=== PATIENT | female | born 1990 | race African-American/Black ===

== ENCOUNTER 2020-05-11 11:10 | Emergency (ER) | payer MEDICAID ==
[~2020-05-11] VITALS: Ht 167.6 cm; Wt 112.0 kg
[2020-05-11] MEDS ORDERED: IV NORMAL SALINE 1,000ML 1,000 ML IV SCH (11:45)
--- NOTE | 2020-05-11 11:55 | EKG ---
[facility] ED [facility] [address] [place] [id number] Test Date: 2020-05-11 Test Time: 11:40:25 Pat Name: LENO DHALIWAL Department: Room: Gender: F Fusion Operator: : 1990 Requested By: CHIDI FINCH Order Number: [id number] Reading MD: Measurements Intervals Carey Rate: 120 P: 28 TN: 152 QRS: 17 QRSD: 74 T: 34 QT: 302 QTc: 431 Interpretive Statements SINUS TACHYCARDIA LEFT ATRIAL ABNORMALITY QRS(T) CONTOUR ABNORMALITY CONSISTENT WITH ANTEROSEPTAL INFARCT AGE UNDETERMINED ABNORMAL ECG RI6.02 No previous ECG available for comparison
--- NOTE | 2020-05-11 12:10 | RAD ---
Examination: XR CHEST 1V History: cp Comparison/Correlation: None Findings: Portable frontal view chest was obtained. Heart size and pulmonary vasculature are normal. No infiltrate or effusion. No pneumothorax. . No acute bony process. Impression: No active disease. Electronically signed by: Chandler Fair MD (05/11/2020 12:08 PM) [id number]
--- NOTE | 2020-05-11 12:17 | PHYS DOC ---
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 States she initially was planning on going to urgent care center for sore throat for the past 2 days. States while she was in the car started experiencing pain in her left shoulder blade with a squeezing type chest pain, "my lungs were closing off," and decreased LUE sensation. Symptoms have improved since then. Reports 3 admissions at [facility] in the past month.04/17-04/23 for Covid related pneumonia. 04/30- 05/02 for "respiratory, required oxygen" / covid. Does report an elevated d- dimer but doesn't think they did a ct scan to assess for PE. Pt also requesting pain medication, her routine anxiety and neuropathic medications along with her routine muscle relaxers. Reports she was told she may have lupus. Also asks about a rash on her chest that started 2-3 weeks ago (not involving mucous membranes). Then asked about loose stools she had 3 days ago after taking miralax, now with normal daily bms. Review of Systems: Review of Systems: Constitutional: Denies fever or chills Eyes: Denies change in visual acuity HENT: Denies nasal congestion or rhinorrhea Respiratory: Denies hemoptysis or increased wob Cardiovascular: Denies syncope or edema GI: Denies abdominal pain, nausea, vomiting, bloody stools or diarrhea : Denies dysuria or hematuria Musculoskeletal: Denies joint pain or swelling Integument: Denies cyanosis or diaphoresis Neurologic: Denies headache, focal weakness or sensory changes Endocrine: Denies polyuria or polydipsia Lymphatic: Denies swollen glands Psychiatric: Denies depression, SI or HI Current Medications: Current Meds: Current Medications Medications (Trade) Dose Ordered Sig/Radha Start Time Stop Time Status Last Admin Dose Admin Sodium Chloride 1,000 ml @ 1,000 mls/hr Q1H 05/11/20 11:45 05/11/20 12:44 Allergies: Allergies: Allergies Coded Allergies Type Severity Reaction Last Updated Verified bee venom protein (honey bee) Allergy Severe Shortness of Air 05/11/20 Yes diphenhydramine Allergy Unknown Nausea and Vomiting 05/11/20 Yes Physical Exam: PE: Constitutional: Well developed, well nourished, afebrile, obese HENT: Normocephalic, atraumatic, very dry/cracked tongue, flushed cheeks (sle?), normal tms/external ear canal, no pharyngeal erythema/exudates, no cervical lad, no nuchal rigidity or meningismus, very dry cracked tongue Eyes: EOMI, conjunctiva normal, no discharge. Neck: Normal range of motion, supple, Cardiovascular: S1/2 present, regular rhythm, tachycardic Lungs & Thorax: Speaking in full sentences, bilateral equal chest rise, no tachypnea or increased work of breathing Abdomen: soft, no tenderness, Skin: Warm, dry, no erythema, no urticaria rash -has 4-5 small areas of flat red bumps over chest (clogged glands?)-not a Back: No tenderness, no CVA tenderness. [] Extremities: No tenderness, no cyanosis, no edema Neurologic: Alert and oriented X 3, normal motor function, normal sensory function, no focal deficits noted. [] Psychologic: Affect normal, judgement normal, mood-very anxious/overwhelmed Current Patient Data: Vital Signs: Vital Signs Date Time Temp Pulse Resp B/P (MAP) Pulse Ox O2 Delivery O2 Flow Rate FiO2 05/11/20 11:20 98.1 125 16 144/98 (113) 97 EKG: EKG: sinus tachycardiac 120 bpm, TWI V2, normal intervals, no TAHIRA/STDs. Radiology/Procedures: Radiology/Procedures: IMAGING REPORT Signed PATIENT: LENO DHALIWAL AACCOUNT: [id number] : 1990 LOCATION: ER AGE: 30 SEX: F EXAM STATUS: REG ER ORD. PHYSICIAN: CHIDI FINCH DO REASON: cp PROCEDURE: PORTABLE CHEST 1V Examination: XR CHEST 1V History: cp Comparison/Correlation: None Findings: Portable frontal view chest was obtained. Heart size and pulmonary vasculature are normal. No infiltrate or effusion. No pneumothorax. . No acute bony process. Impression: No active disease. Electronically signed by: Chandler Blue MD (05/11/2020 12:08 PM) [id number] DICTATED AND SIGNED BY: CHANDLER BLUE MD DATE: 05/11/20 1206 CC: PCP,UNKNOWN; CHIDI FINCH DO ~MTH0 0 IMAGING REPORT Signed PATIENT: LENO DHALIWAL AACCOUNT: [id number] : 1990 LOCATION: ER AGE: 30 SEX: F EXAM STATUS: REG ER ORD. PHYSICIAN: CHIDI FINCH DO REASON: severe chest/bcak pain, r/o disssection PROCEDURE: CT ANGIOGRAPHY CHEST CTA CHEST INDICATION: severe chest/bcak pain, r/o disssection Comparison: None. TECHNIQUE: Following the uneventful administration of intravenous contrast, 100 cc Omnipaque 350, axial CT sections were obtained through the lungs and upper abdomen. Multiplanar reconstructions and MIP images were obtained. PQRS compliance statement: One or more of the following individualized dose reduction techniques were utilized for this examination: 1. Automated exposure control 2. Adjustment of the mA and/or kV according to patient size 3. Use of iterative reconstruction technique FINDINGS: Lungs and Airways: Patchy bilateral groundglass opacities. No abnormality of the central airways. Pleura: The pleural spaces are normal. Heart and Mediastinum: The visualized thyroid is normal in size and attenuation. No axillary or supraclavicular lymphadenopathy. No mediastinal, hilar or retrocrural lymphadenopathy. The heart and pericardium are within normal limits. Normal caliber thoracic aorta. No aortic dissection or aneurysm. No evidence of pulmonary thromboembolic disease. Abdomen: Limited images through the upper abdomen show no abnormality of the visualized organs. Bones and Soft Tissues: The visualized bones and chest wall soft tissues are within normal limits. IMPRESSION: 1. No aortic dissection or aneurysm. No evidence of pulmonary thromboembolic disease. 2. Patchy bilateral heterogeneous opacities, likely multifocal infection Electronically signed by: Capo Velazquez MD (05/11/2020 3:22 PM) [id number] DICTATED AND SIGNED BY: CAPO VELAZQUEZ MD DATE: 05/11/20 1520 CC: PCP,UNKNOWN; VOHS,CHIDI M DO ~MTH0 0 Heart Score: Risk Factors: Risk Factors: DM, Current or recent (<one month) smoker, HTN, HLP, family history of CAD, obesity. Risk Scores: Score 0 - 3: 2.5% MACE over next 6 weeks - Discharge Home Score 4 - 6: 20.3% MACE over next 6 weeks - Admit for Clinical Observation Score 7 - 10: 72.7% MACE over next 6 weeks - Early Invasive Strategies Course & Med Decision Making: Course & Med Decision Making Pertinent Labs and Imaging studies reviewed. (See chart for details) Pt c/o severe chest and back pain described as sharp over her left scapula, atraumatic in nature. Reports she was admitted to [facility] for this pain May 04. Is currently taking Flexeril, Tylenol, ibuprofen and gabapentin. D-dimer is not elevated. CTA negative for aortic dissection (bp 172/122). Patient speaking in full sentences, requiring no oxygen, has no LE e cristobal. I do suspect tachycardia is related to patient's dehydration status- consider withdrawal? Also could be medication AE-was recently started on remeron (xerostomia). Pt very young with complicated medical hx and on multiple medications-needs urgent pmd followup to review this. I do suspect some anxiety related component to pts' health-her bp increases when she becomes emotional. Sxs today could also be related to covid complications or her fibromyalgia. Will discharge home with strict ED return precautions were given for paralysis, neurologic deficits, trauma or injury. Encouraged urgent outpatient follow-up with PMD and pain management. Life-threatening processes were considered but are low suspicion at this time, given history, physical exam and ED workup. Pt was educated on all prescription medications and adverse effects. All patient's questions were answered and pt was stable at time of discharge. Life/limb-threatening differential includes but is not limited to, acute myocardial infarction, aortic dissection, congestive heart failure, esophageal injury including rupture, surgical abdomen, arrhythmia, cardiomyopathy, myoca rditis, pericarditis, peptic ulcer disease, pneumomediastinum, pneumonia, pneumothorax, pulmonary embolus, unstable angina, rib fracture, contusion, pericardial tamponade or effusion, pulmonary contusion I spoken with the patient and her caregivers. I explained the patient's condition, diagnoses and treatment plan based on the information available to me at this time. I have answered the patient and her caregiver's questions and addressed any concerns. The patient and her caregivers have a good understa nding of patient's diagnosis, condition and treatment plan as can be expected at this point. Vital signs have been stable. Patient's condition is stable and appropriate for discharge from the emergency department. Patient will pursue further outpatient evaluation with primary care physician or other designated or consulting physician as outlined in the discharge instructions. The patient and/or caregivers are agreeable to this plan of care and follow-up instructions have been explained in detail. The patient and/or caregivers have received these instructions in written form and have expressed an understanding of the discharge instructions. The patient and/or caregivers are aware that any significant change of condition or worsening of symptoms should prompt immediate return to this or the closest emergency department or call to 1Leonor Lozoya Disclaimer: Darell Disclaimer: This electronic medical record was generated, in whole or in part, using a voice recognition dictation system. Departure Departure: Impression: Primary Impression: Pain of left scapula Additional Impressions: Sore throat Anxiety about health Disposition: 01 DC HOME SELF CARE/HOMELESS Condition: STABLE Referrals: PCP,UNKNOWN (PCP) FOLLOW UP WITH FAMILY MEDICINE: [employer] [facility], [facility] [address] [address] Instructions: Fibromyalgia, Pain, Neuropathic Additional Instructions: FOLLOW UP WITH PAIN MANAGEMENT: [facility] Address: [address] [place] [id number] EMERGENCY DEPARTMENT GENERAL DISCHARGE INSTRUCTIONS Thank you for coming to [facility] (ED) today and trusting us with you care. We trust that you had a positivie experience in our Emergency Department. If you wish to speak to the department management, you may call the director at [phone]. YOUR FOLLOW UP INSTRUCTIONS ARE FOLLOWS: 1. Do you have a private Doctor? If you do not have a private doctor, please ask for a resource list of physicians or clinics that may be able to assist you with foll ow up care. 2. The Emergency Physician has interpreted your x-rays. The X-Ray specialist will also review them. If there is a change in the findings, you will be notified in 48 hours when at all possible. 3. A lab test or culture has been done, your results will be reviewed and you will be notified if you need a change in treatment. ADDITIONAL INSTRUCTIONS AND INFORMATION: 1. Your care today has been supervised by a physician who is specially trained in emergency care. Many problems require more than one evaluation for a complete diagnosis and treatment. We recommend that you schedule your follow up appointment as re commended to ensure complete treatment of you illness or injury. If you are unable to obtain follow up care and continue to have a problem, or if your condition worsens, we recommend that you return to the ED. 2. We are not able to safely determine your condition over the phone nor are we able to give sound medical advice over the phone. For these safety reasons, if you call for medical advice we will ask you to come to the ED for further evaluation. 3. If you have any questions regarding these discharge instructions please call the ED at [phone]. SAFETY INFORMATION: In the interest of safety, wellness, and injury prevention; we encourage you to wear your sealbelt, if you smoke; quite smoking, and we encourage family to use a protective helmet for bicycling and other sporting events that present an increased risk for head injury. IF YOUR SYMPTOMS WORSEN OR NEW SYMPTOMS DEVELOP, OR YOU HAVE CONCERNS ABOUT YOUR CONDITION; OR IF YOUR CONDITION WORSENS WHILE YOU ARE WAITING FOR YOUR FOLLOW UP APPOINTMENT; EITHER CONTACT YOUR PRIMARY CARE DOCTOR, THE PHYSICIAN WHOSE NAME AND NUMBER YOU WERE GIVEN, OR RETURN TO THE ED IMMEDIATELY. Scripts Lidocaine/Menthol (LIDOPATCH) 1 Each Adh..patch 1 LU TP DAILY for pain for 5 Days, #5 EACH 0 Refills Apply daily x12 hours, remove for 12 hours. May repeat 4 times. Prov: CHIDI FINCH DO 05/11/20 CHIDI FINCH DO May 11, 2020 12:17
[2020-05-11 12:26] LABS: BASO % 0 % (0-3); EOS # 0.1 x10^3/uL (0.0-0.7); EOS % 2 % (0-3); HEMATOCRIT 40.2 % (36.0-47.0); HEMOGLOBIN 13.2 g/dL (12.0-15.5); LYMPH # 0.6 x10^3/uL (1.0-4.8); LYMPH % 9 % (24-48); MEAN CORPUSCULAR HEMOGLOBIN 28 pg (25-35); MEAN CORPUSCULAR HGB CONC 33 g/dL (31-37); MEAN CORPUSCULAR VOLUME 86 fL (79-100); MONO # 0.3 x10^3/uL (0.0-1.1); MONO % 4 % (0-9); NEUT # 6.1 x10^3uL (1.8-7.7); NEUT % 86 % (31-73); PLATELET COUNT 243 x10^3/uL (140-400); RED BLOOD COUNT 4.66 x10^6/uL (3.50-5.40); WHITE BLOOD COUNT 7.2 x10^3/uL (4.0-11.0)
[2020-05-11 12:29] LABS: CALCIUM 9.2 mg/dL (8.5-10.1); CREATININE 0.8 mg/dL (0.6-1.0); GFR 101.9; POTASSIUM 3.9 mmol/L (3.5-5.1)
[2020-05-11 12:36] LABS: ALBUMIN 3.9 g/dL (3.4-5.0); ALBUMIN/GLOBULIN RATIO 1.1 (1.0-1.7); MAGNESIUM 2.5 mg/dL (1.8-2.4); TOTAL BILIRUBIN 0.2 mg/dL (0.2-1.0); TOTAL PROTEIN 7.5 g/dL (6.4-8.2)
[2020-05-11] MEDS ORDERED: IV NORMAL SALINE 1,000ML 1,000 ML IV ONE (13:00)
[2020-05-11] MEDS ORDERED: DEXAMETHASONE SOD PHOS 10 MG/ML VIAL. IV ONE (13:00)
[2020-05-11] MEDS ORDERED: KETOROLAC 15 MG/ML VIAL. IVP ONE (13:00)
[2020-05-11 13:03] LABS: % LYMPHS 10 % (24-48); % MONOS 10 % (0-10); % SEGS 80 % (35-66); PLT ESTIMATE ADEQUATE (ADEQUATE)
[2020-05-11 13:18] LABS: AMPHETAMINE/METHAMPHETAMINE NEG (NEG); BARBITURATES NEG (NEG); BENZODIAZEPINES NEG (NEG); CANNABINOIDS POS (NEG); COCAINE NEG (NEG); METHADONE NEG (NEG); OPIATES NEG (NEG); PHENCYCLIDINE NEG (NEG)
[2020-05-11 13:19] LABS: COLOR,URINE YELLOW
[2020-05-11 13:20] LABS: BACTERIA,URINE 0 /HPF (0-FEW); BILIRUBIN,URINE NEG (NEG); CLARITY,URINE CLEAR; GLUCOSE,URINE NEG (NEG); NITRITE,URINE NEG (NEG); RBC,URINE 0 /HPF (0-2); SQUAMOUS EPITHELIAL CELL,UR FEW /LPF; UROBILINOGEN,URINE 0.2 mg/dL (0.2 mg/dL); WBC,URINE 0 /HPF (0-4)
[2020-05-11] MEDS ORDERED: CYCLOBENZAPRINE 10 MG TABLET. PO ONE (14:45)
[2020-05-11] MEDS ORDERED: IOHEXOL 350 MG/ML 100 ML VIAL. IV ONE (14:45)
[2020-05-11] MEDS: hydrOXYzine HCL 25 MG TABLET PO PRN ×2 (14:46→14:57)
[2020-05-11] MEDS ORDERED: CONTRAST GIVEN. MC PRN (15:00)
--- NOTE | 2020-05-11 15:24 | RAD ---
CTA CHEST INDICATION: severe chest/bcak pain, r/o disssection Comparison: None. TECHNIQUE: Following the uneventful administration of intravenous contrast, 100 cc Omnipaque 350, axi al CT sections were obtained through the lungs and upper abdomen. Multiplanar reconstructions and MIP images were obtained. PQRS compliance statement: One or more of the following individualized dose reduction techniques were utilized for this examinat ion: 1. Automated exposure control 2. Adjustment of the mA and/or kV according to patient size 3. Use of iterative reconstruction technique FINDINGS: Lungs and Airways: Patchy bilateral groundglass opacities. No abnormality of the central airways. Pleura: The pleural spaces are normal. Heart and Mediastinum: The visualized thyroid is normal in size and attenuation. No axillary or supra clavicular lymphadenopathy. No mediastinal, hilar or retrocrural lymphadenopathy. The heart and peric ardium are within normal limits. Normal caliber thoracic aorta. No aortic dissection or aneurysm. No evidence of pulmonary thromboembolic disease. Abdomen: Limited images through the upper abdomen show no abnormality of the visualized organs. Bones and Soft Tissues: The visualized bones and chest wall soft tissues are within normal limits. IMPRESSION: 1. No aortic dissection or aneurysm. No evidence of pulmonary thromboembolic disease. 2. Patchy bilateral heterogeneous opacities, likely multifocal infection Electronically signed by: Odell Velazquez MD (05/11/2020 3:22 PM) [id number]
[2020-05-11] MEDS ORDERED: LIDO1ADH TP (15:35)
[2020-05-11 16:25] VITALS: BP 158/98
== END 2020-05-11 16:30 | disposition home or self-care (01) ==
LOC: ER 11:10
DX: F41.9 Anxiety disorder, unspecified (principal); J02.9 Acute pharyngitis, unspecified; M25.512 Pain in left shoulder; J45.909 Unspecified asthma, uncomplicated; M79.7 Fibromyalgia; E28.2 Polycystic ovarian syndrome; Z88.8 Allergy status to other drugs, medicaments and biological substances; Z91.030 Bee allergy status
CPT/HCPCS: 36415; 71045; 71275; 80053; 80307; 81001; 81025; 83690; 83735; 84484; 85007; 85025; 85379; 87070; 87880; 93005; 96361; 96374; 96375; 99285; J1100; J1885; J3010; J7030